=== PATIENT | female | born 1995 | race African-American/Black ===

== ENCOUNTER 2024-08-01 21:42 | Emergency (ER) | payer MEDICAID ==
[~2024-08-01] VITALS: Ht 172.7 cm; Wt 49.0 kg
[2024-08-02 00:03] LABS: BASOPHILS # (AUTO) 0.1 K/uL (0.0-0.2); HEMOGLOBIN 7.1 g/dL (11.5-14.8); MEAN CORPUSCULAR VOLUME 65 fL (82-100)
[2024-08-02 00:07] LABS: APPEARANCE,URINE CLEAR (CLEAR); BILIRUBIN,URINE NEGATIVE (NEGATIVE); BLOOD, URINE NEGATIVE Ery/uL (NEGATIVE); COLOR,URINE YELLOW (YELLOW); KETONES,URINE NEGATIVE (NEGATIVE); LEUKOCYTE ESTERASE ,URINE NEGATIVE (NEGATIVE); NITRITE, URINE NEGATIVE (NEGATIVE); PH,URINE 7.5 (5.0-8.0); PROTEIN,URINE NEGATIVE (NEGATIVE); UGLUCOSE NEGATIVE (NEGATIVE); UROBILINOGEN,URINE 0.2 EU/dL (0.2)
[2024-08-02 00:14] LABS: BASOPHILS % (AUTO) 1.1 % (0.0-2.0); EOSINOPHILS # (AUTO) 0.6 K/uL (0.0-0.7); EOSINOPHILS % (AUTO) 5.6 % (0.0-6.0); HEMATOCRIT 23 % (33-45); LYMPHOCYTES # (AUTO) 2.3 K/uL (0.8-4.8); LYMPHOCYTES % (AUTO) 22.4 % (20.0-44.0); MEAN CORPUSCULAR HEMOGLOBIN 20 PG (26.0-33.0); MEAN CORPUSCULAR HGB CONC 31 g/dl (31.0-36.0); MONOCYTES # (AUTO) 0.9 K/uL (0.1-1.30); MONOCYTES % (AUTO) 8.9 % (2.0-12.0); NEUTROPHILS # (AUTO) 6.3 K/uL (1.8-8.9); PLATELET COUNT (AUTO) 767 K/uL (150-450); RED BLOOD CELL COUNT(AUTO) 3.51 MIL/uL (4.0-5.2); WHITE BLOOD COUNT (AUTO) 10.1 K/uL (4.3-11.0)
[2024-08-02 00:20] LABS: CALCIUM, SERUM 8.9 mg/dL (8.5-10.1); CREATININE 0.6 mg/dL (0.6-1.3); POTASSIUM 3.8 mmol/L (3.5-5.1)
[2024-08-02 00:21] LABS: INR 1.09 (0.91-1.10); PARTIAL THROMBOPLASTIN TIME 25.1 SEC (24.3-34.3); PROTHROMBIN TIME 11.5 SECS (9.2-11.1)
[2024-08-02 00:34] LABS: ALBUMIN 3.2 g/dL (3.4-5.0); BILIRUBIN,DIRECT 0.1 mg/dL (0.0-0.2); BILIRUBIN,TOTAL 0.1 mg/dL (0.2-1.0); TOTAL PROTEIN, SERUM 7.9 g/dL (6.4-8.2)
[2024-08-02] MEDS ORDERED: MINERAL OIL 133 ML (PYXIS) 1 EA ENEMA RC ONE (01:10)
[2024-08-02] MEDS ORDERED: POLY17PO4 PO (01:17)
[2024-08-02] MEDS ORDERED: DOCU-141 PO (01:17)
[2024-08-02] MEDS: IV NS 0.9% 1,000 ML BAG IV ONE (01:31)
[2024-08-02] MEDS: MINERAL OIL 133 ML (PYXIS) 1 EA ENEMA RC ONE (01:31)
[2024-08-02 02:03] LABS: EOSINOPHILS % (MANUAL) 7 % (0-4); LYMPHOCYTES % (MANUAL) 19 % (16-48); MONOCYTES % (MANUAL) 5 % (0-11.0); NEUTROPHILS % (MANUAL) 69 (42-76); PLATELET ESTIMATE ADEQUATE
[2024-08-02 02:04] LABS: ANISOCYTOSIS 1+; HYPOCHROMASIA 1+; STOMATOCYTES 1+
[2024-08-02 02:24] VITALS: BP 125/87; TEMP 98; O2SAT 99
== END 2024-08-02 02:25 | disposition home or self-care (01) ==
LOC: ER 21:45
DX: K59.00 Constipation, unspecified (principal); C18.9 Malignant neoplasm of colon, unspecified; C78.7 Secondary malignant neoplasm of liver and intrahepatic bile duct; D63.8 Anemia in other chronic diseases classified elsewhere; E87.0 Hyperosmolality and hypernatremia
CPT/HCPCS: 99284; 74176; 85025; 80048; 83690; 80076; 81003; 36415; 85730; 96360; 85007; J7030